=== PATIENT | male | born 1960 | race Caucasian/White ===

== ENCOUNTER 2016-07-24 19:22 | Inpatient (IN) | payer MEDICAID ==
[~2016-07-24] VITALS: Ht 177.8 cm; Wt 62.8 kg
[~2016-07-24 19:22] MED LIST: AMPI3VIA IV; CEPH-368 PO; IBUP200T48 PO; SULF1TAB24 PO; VANC1VIA3 IV
[2016-07-24] MEDS ORDERED: LORazepam 2 MG/ML, 1ML ONE ×2 (19:56→20:33)
[2016-07-24] MEDS ORDERED: ACETAMINOPHEN 650 MG SUPP ONE (19:56)
[2016-07-24 19:59] LABS: HEMOGLOBIN 12.7 g/dL (13.7-18.0)
[2016-07-24] MEDS ORDERED: ACETAMINOPHEN 500 MG TABLET PO ONE (20:00)
[2016-07-24] MEDS ORDERED: SODIUM CHLORIDE 0.9% 1,000ML IVBOLUS ONE ×2 (20:00)
[2016-07-24] MEDS ORDERED: LORazepam 2 MG/ML, 1ML IVPush ONE ×2 (20:00→21:00)
[2016-07-24] MEDS ORDERED: ACETAMINOPHEN 650 MG SUPP PR ONE (20:00)
[2016-07-24 20:13] LABS: ASPARTATE AMINO TRANSFERASE 25 U/L (15-37)
[2016-07-24] MEDS ORDERED: PIPERACILLIN/TAZO/PMX 3.375GM 50 ML IVPB ONE (20:30)
[2016-07-24] MEDS ORDERED: VANCOMYCIN PER PHARMACY MC ONE (20:30)
[2016-07-24 20:38] LABS: DAU SCREEN DISCLAIMER
[2016-07-24 20:43] LABS: BLOOD UREA NITROGEN 134 mg/dL (7-18)
[2016-07-24 20:46] LABS: IS PT STATUS REG ER OR PRE ER? YES
[2016-07-24] MEDS ORDERED: DEXTROSE 50%, 50ML SYRINGE ONE (20:56)
[2016-07-24] MEDS ORDERED: SODIUM BICARBONATE 1 MEQ/ML, 50ML VIAL ONE (20:57)
[2016-07-24] MEDS ORDERED: INSULIN SINGLE DOSE, ER SQ-INSULIN ONE (20:57)
[2016-07-24] MEDS ORDERED: SODIUM BICARB 8.4%, 50ML SYRINGE IVPush ONE (21:00)
[2016-07-24] MEDS ORDERED: INSULIN REGULAR 100 UNITS/ML, 3ML VIAL IVPush ONE (21:00)
[2016-07-24] MEDS ORDERED: SODIUM POLYSTYRENE SULFONATE ORAL SUSP PO ONE (21:00)
[2016-07-24] MEDS ORDERED: CALCIUM GLUCONATE 4.6 MEQ in SODIUM CHLORIDE 0.9% 50 ML IV ONE (21:00)
[2016-07-24] MEDS ORDERED: ALBUTEROL 0.5%, 20ML NPPB ONE (21:00)
[2016-07-24] MEDS ORDERED: VANCOMYCIN 1,200 MG in SODIUM CHLORIDE 0.9% 250 ML IV ONE (21:00)
[2016-07-24] MEDS ORDERED: DEXTROSE 50%, 50ML SYRINGE IVPush ONE (21:00)
[2016-07-24] MEDS ORDERED: SODIUM BICARB 8.4%,50ML SYR. 75 MEQ in SODIUM CHLORIDE 0.45% 1,000 ML IV SCH (21:30)
[2016-07-24] MEDS ORDERED: ALBUTEROL SULFATE 2.5 MG/3 ML ONE (21:42)
[2016-07-24] MEDS ORDERED: PHARMACY MAY ADJ FOR RENAL FX MC PRN (22:00)
[2016-07-24] MEDS ORDERED: LORazepam 2 MG/ML, 1ML IVPush PRN (22:00)
[2016-07-24] MEDS ORDERED: VANCOMYCIN PER PHARMACY MC PRN (22:00)
[2016-07-24] MEDS: HEPARIN 5,000 UNITS/ML, 1ML SQ SCH (22:00)
[2016-07-24] MEDS ORDERED: ONDANSETRON 2MG/ML, 2ML IVP PRN (22:00)
[2016-07-24] MEDS ORDERED: MORPHINE SULFATE 4 MG/ML, 1ML IVPush PRN (22:00)
[2016-07-24] MEDS ORDERED: PIPERACILLIN/TAZO/PMX 3.375GM 50 ML ONE (22:21)
[2016-07-24 22:26] LABS: BLOOD UREA NITROGEN 100 mg/dL (7-18)
[2016-07-24] MEDS ORDERED: FLUMAZENIL 0.1 MG/1 ML, 5ML ONE ×2 (23:07→23:28)
[2016-07-24] MEDS ORDERED: DEXTROSE 50%, 50ML VIAL IVPush ONE (23:30)
[2016-07-24] MEDS ORDERED: PHARMACOKINETIC MONITORING MC PRN (23:30)
[2016-07-24] MEDS ORDERED: PHARMACOKINETIC CONSULTATION MC ONE (23:30)
[2016-07-25] MEDS ORDERED: PROPOFOL 10 MG/ML, 100ML IV ONE
[2016-07-25 00:30] LABS: HEMOGLOBIN 11.1 g/dL (13.7-18.0)
[2016-07-25] MEDS ORDERED: FLUMAZENIL 0.1 MG/1 ML, 5ML IVPush ONE (00:30)
[2016-07-25 00:38] LABS: BLOOD UREA NITROGEN 83 mg/dL (7-18)
[2016-07-25 00:54] LABS: DIFF TOTAL CELLS COUNTED 100 CELL DIFF
[2016-07-25 00:56] LABS: VERIFY COUNTS? YES
[2016-07-25] MEDS ORDERED: LIDOCAINE-MPF 1%, 2ML ENDO PRN (01:00)
[2016-07-25] MEDS ORDERED: PROPOFOL 10 MG/ML, 20ML IV ONE (01:00)
[2016-07-25] MEDS: SODIUM CHLORIDE 0.9% 1,000 ML IV SCH ×4 (02:16→23:49)
[2016-07-25] MEDS: PROPOFOL 100 ML IV PRN ×2 (02:17→05:49)
[2016-07-25] MEDS: ALBUTEROL/IPRATROPIUM 2.5MG/0.5MG, 3 ML INLINE SCH ×3 (02:23→10:00)
[2016-07-25] MEDS: PIPERACILLIN/TAZO/PMX 2.25GM 50 ML IV SCH ×3 (02:51→18:46)
[2016-07-25 04:48] LABS: HEMOGLOBIN 11.1 g/dL (13.7-18.0)
[2016-07-25] MEDS ORDERED: NOREPINEPHRINE 1 MG/ML, 4ML ONE (05:30)
[2016-07-25] MEDS: SODIUM CHLORIDE 0.9% 500 ML IV SCH ×2 (05:30→06:30)
[2016-07-25] MEDS ORDERED: NOREPINEPHRINE 4 MG in SODIUM CHLORIDE 0.9% 246 ML IV PRN (05:30)
[2016-07-25 05:50] LABS: BLOOD UREA NITROGEN 71 mg/dL (7-18)
[2016-07-25] MEDS: HEPARIN 5,000 UNITS/ML, 1ML SQ SCH ×3 (06:00→23:49)
[2016-07-25] MEDS: PANTOPRAZOLE 40 MG IV IVP SCH (08:51)
[2016-07-26] MEDS: PIPERACILLIN/TAZO/PMX 2.25GM 50 ML IV SCH ×2 (02:37→11:26)
[2016-07-26 02:39] VITALS: BP 144/85
[2016-07-26 04:25] LABS: HEMOGLOBIN 9.9 g/dL (13.7-18.0)
[2016-07-26 04:34] LABS: BLOOD UREA NITROGEN 15 mg/dL (7-18); TOTAL IRON BINDING CAPACITY 165 mcg/dL (250-450)
[2016-07-26] MEDS: HEPARIN 5,000 UNITS/ML, 1ML SQ SCH ×3 (05:47→21:02)
[2016-07-26] MEDS: SODIUM CHLORIDE 0.9% 1,000 ML IV SCH ×2 (07:00→09:00)
[2016-07-26] MEDS ORDERED: MAGNESIUM SULFATE PMX 4GM/100M 100 ML IV ONE (07:00)
[2016-07-26 07:12] VITALS: BP 148/81
[2016-07-26] MEDS: PANTOPRAZOLE 40 MG IV IVP SCH (08:59)
[2016-07-26] MEDS ORDERED: POTASSIUM PHOS 4.4 MEQ/ML IV SCH (10:30)
[2016-07-26 10:33] LABS: BLOOD UREA NITROGEN 12 mg/dL (7-18)
[2016-07-26] MEDS ORDERED: SODIUM CHLORIDE 0.9% IV ONE (11:00)
[2016-07-26] MEDS ORDERED: POTASSIUM PHOSPHATE IV ONE (11:00)
[2016-07-26] MEDS: ERGOCALCIFEROL 50,000 UNIT CAPSULE PO SCH (11:26)
[2016-07-26] MEDS ORDERED: VANCOMYCIN 1,200 MG in SODIUM CHLORIDE 0.9% 250 ML IV SCH ×2 (12:00→20:00)
[2016-07-26 12:46] VITALS: BP 150/80
[2016-07-26] MEDS: CEFTRIAXONE PMX 2GM/50ML 50 ML IV SCH (13:51)
[2016-07-26] MEDS: FERROUS SULFATE 325 MG TABLET PO SCH (17:08)
[2016-07-26 19:15] VITALS: BP 138/89
[2016-07-26 22:43] LABS: BLOOD UREA NITROGEN 9 mg/dL (7-18)
[2016-07-27 00:39] VITALS: BP_SYST 159; BP_DIAS 88; BP_DIAS 91
[2016-07-27 04:17] LABS: ABG COLLECTION SITE RIGHT BRACHIAL
[2016-07-27 04:24] LABS: HEMOGLOBIN 10.6 g/dL (13.7-18.0)
[2016-07-27 04:35] LABS: BLOOD UREA NITROGEN 8 mg/dL (7-18)
[2016-07-27] MEDS: HEPARIN 5,000 UNITS/ML, 1ML SQ SCH ×3 (05:39→21:49)
[2016-07-27] MEDS ORDERED: MAGNESIUM SULFATE PMX 2GM/50ML 50 ML IV ONE ×2 (07:00→12:30)
[2016-07-27] MEDS ORDERED: SODIUM PHOSPHATE 20 MMOL in SODIUM CHLORIDE 0.9% 500 ML IV ONE (07:00)
[2016-07-27 07:11] VITALS: BP 143/88
[2016-07-27 10:13] LABS: BLOOD UREA NITROGEN 9 mg/dL (7-18)
[2016-07-27] MEDS: FERROUS SULFATE 325 MG TABLET PO SCH ×2 (10:24→17:29)
[2016-07-27] MEDS: CEFTRIAXONE PMX 2GM/50ML 50 ML IV SCH (13:05)
[2016-07-27] MEDS: NEUTRA PHOS K 250 MG TABLET PO SCH ×2 (13:07→21:47)
[2016-07-27 13:24] VITALS: BP 144/86
[2016-07-27 14:20] LABS: HIV 1&2 ANTIBODY SCREEN Nonreactive (Nonreactive); HIV-1 p24 ANTIGEN Nonreactive (Nonreactive)
[2016-07-27 15:22] LABS: HEPATITIS C VIRUS ANTIBODY Reactive (Nonreactive)
[2016-07-27 18:29] VITALS: BP 137/80
[2016-07-27] MEDS: LINEZOLID 600 MG TABLET PO SCH (21:47)
[2016-07-28 01:02] VITALS: BP 137/85
[2016-07-28 04:42] LABS: HEMOGLOBIN 11.8 g/dL (13.7-18.0)
[2016-07-28 04:48] LABS: BLOOD UREA NITROGEN 11 mg/dL (7-18)
[2016-07-28] MEDS: HEPARIN 5,000 UNITS/ML, 1ML SQ SCH ×3 (05:37→22:39)
[2016-07-28 08:25] VITALS: BP 126/83
[2016-07-28] MEDS: NEUTRA PHOS K 250 MG TABLET PO SCH ×2 (09:17→22:39)
[2016-07-28] MEDS: LINEZOLID 600 MG TABLET PO SCH ×2 (09:17→22:39)
[2016-07-28] MEDS: FERROUS SULFATE 325 MG TABLET PO SCH ×2 (09:17→15:43)
[2016-07-28] MEDS: CEFTRIAXONE PMX 2GM/50ML 50 ML IV SCH (12:29)
[2016-07-28 13:54] VITALS: BP 121/77
[2016-07-28 18:51] VITALS: BP 148/82
[2016-07-29 03:27] VITALS: BP 118/76
[2016-07-29 04:33] LABS: HEMOGLOBIN 13.1 g/dL (13.7-18.0)
[2016-07-29 04:40] LABS: BLOOD UREA NITROGEN 17 mg/dL (7-18)
[2016-07-29] MEDS: HEPARIN 5,000 UNITS/ML, 1ML SQ SCH ×3 (06:28→20:33)
[2016-07-29 07:47] VITALS: BP 113/73
[2016-07-29] MEDS: LINEZOLID 600 MG TABLET PO SCH ×2 (09:24→20:33)
[2016-07-29] MEDS: FERROUS SULFATE 325 MG TABLET PO SCH ×2 (09:24→17:32)
[2016-07-29] MEDS: CEFTRIAXONE PMX 2GM/50ML 50 ML IV SCH (12:14)
[2016-07-29 13:00] VITALS: BP 120/73
[2016-07-29 19:23] VITALS: BP 116/70
[2016-07-30 04:00] VITALS: BP 112/78
[2016-07-30] MEDS: HEPARIN 5,000 UNITS/ML, 1ML SQ SCH ×3 (05:00→21:52)
[2016-07-30 05:20] LABS: HEMOGLOBIN 13.4 g/dL (13.7-18.0)
[2016-07-30 06:01] LABS: ASPARTATE AMINO TRANSFERASE 105 U/L (15-37); BLOOD UREA NITROGEN 18 mg/dL (7-18)
[2016-07-30 08:34] VITALS: BP 101/64
[2016-07-30] MEDS: FERROUS SULFATE 325 MG TABLET PO SCH ×2 (08:57→18:01)
[2016-07-30] MEDS: LINEZOLID 600 MG TABLET PO SCH ×2 (08:57→21:52)
[2016-07-30] MEDS: CEFTRIAXONE PMX 2GM/50ML 50 ML IV SCH (12:47)
[2016-07-30 14:09] VITALS: BP 97/60
[2016-07-30 17:54] VITALS: BP 106/71
[2016-07-30 18:37] VITALS: BP 100/67
[2016-07-31 02:30] VITALS: BP 111/70
[2016-07-31] MEDS: HEPARIN 5,000 UNITS/ML, 1ML SQ SCH ×3 (04:51→21:21)
[2016-07-31 06:11] LABS: BLOOD UREA NITROGEN 22 mg/dL (7-18)
[2016-07-31 06:58] VITALS: BP 113/73
[2016-07-31] MEDS: LINEZOLID 600 MG TABLET PO SCH ×2 (10:42→21:21)
[2016-07-31] MEDS: FERROUS SULFATE 325 MG TABLET PO SCH ×2 (10:43→18:48)
[2016-07-31] MEDS: CEFTRIAXONE PMX 2GM/50ML 50 ML IV SCH (13:25)
[2016-07-31 13:26] VITALS: BP 116/78
[2016-07-31 20:00] VITALS: BP 115/73
[2016-08-01 02:00] VITALS: BP 113/70
[2016-08-01] MEDS: HEPARIN 5,000 UNITS/ML, 1ML SQ SCH ×3 (05:47→20:21)
[2016-08-01 06:22] LABS: HEMOGLOBIN 12.9 g/dL (13.7-18.0)
[2016-08-01 06:28] LABS: BLOOD UREA NITROGEN 23 mg/dL (7-18)
[2016-08-01 07:23] VITALS: BP 101/67
[2016-08-01] MEDS: LINEZOLID 600 MG TABLET PO SCH ×2 (10:07→20:21)
[2016-08-01] MEDS: FERROUS SULFATE 325 MG TABLET PO SCH ×2 (10:07→18:31)
[2016-08-01] MEDS: CEFTRIAXONE PMX 2GM/50ML 50 ML IV SCH (12:16)
[2016-08-01] MEDS: TAMSULOSIN 0.4 MG CAP.ER.24H PO SCH (12:16)
[2016-08-01 13:01] VITALS: BP 103/66
[2016-08-01 20:00] VITALS: BP 100/62
[2016-08-02 02:00] VITALS: BP 97/60
[2016-08-02 05:10] LABS: HEMOGLOBIN 12.4 g/dL (13.7-18.0)
[2016-08-02 05:25] LABS: BLOOD UREA NITROGEN 23 mg/dL (7-18)
[2016-08-02] MEDS: HEPARIN 5,000 UNITS/ML, 1ML SQ SCH (05:27)
[2016-08-02 07:34] VITALS: BP 100/66
[2016-08-02] MEDS: LINEZOLID 600 MG TABLET PO SCH (09:40)
[2016-08-02] MEDS: TAMSULOSIN 0.4 MG CAP.ER.24H PO SCH (09:40)
[2016-08-02] MEDS: FERROUS SULFATE 325 MG TABLET PO SCH (09:40)
[2016-08-02] MEDS: ERGOCALCIFEROL 50,000 UNIT CAPSULE PO SCH (09:40)
[2016-08-02] MEDS ORDERED: TAMS-11 PO (09:43)
[2016-08-02] MEDS ORDERED: SULF1TAB24 PO (09:52)
[2016-08-02] MEDS ORDERED: AMOX1TAB64 PO (09:52)
[2016-08-02] MEDS: CEFTRIAXONE PMX 2GM/50ML 50 ML IV SCH (12:22)
[2016-08-02 13:08] VITALS: BP 103/64
== END 2016-08-02 16:45 | DRG 871 ==
LOC: ED 20:54 → EDIP 20:55 → ED 21:11 → CCU 22:35 → ICU 07-26 03:46 → 4WST 07-30 17:51
PROVIDERS: ADMIT Internal Medicine; ATTEND Family Medicine
PROC: 0T9B70Z Drainage of Bladder with Drainage Device, Via Natural or Artificial Opening (ICD-10-PCS; 2016-07-24)
PROC: 5A1935Z Respiratory Ventilation, Less than 24 Consecutive Hours (ICD-10-PCS; principal; 2016-07-25)
PROC: 0BH17EZ Insertion of Endotracheal Airway into Trachea, Via Natural or Artificial Opening (ICD-10-PCS; 2016-07-25)
PROC: 05HM33Z Insertion of Infusion Device into Right Internal Jugular Vein, Percutaneous Approach (ICD-10-PCS; 2016-07-25)
DX: A41.51 Sepsis due to Escherichia coli [E. coli] (principal); N17.0 Acute kidney failure with tubular necrosis; J96.00 Acute respiratory failure, unspecified whether with hypoxia or hypercapnia; G93.41 Metabolic encephalopathy; J15.4 Pneumonia due to other streptococci; J15.29 Pneumonia due to other staphylococcus; N39.0 Urinary tract infection, site not specified; E87.1 Hypo-osmolality and hyponatremia; Z99.11 Dependence on respirator [ventilator] status; M86.8X4 Other osteomyelitis, hand; Z59.0 Homelessness; Z80.9 Family history of malignant neoplasm, unspecified; E87.5 Hyperkalemia; L03.011 Cellulitis of right finger; F15.10 Other stimulant abuse, uncomplicated; B19.20 Unspecified viral hepatitis C without hepatic coma; E05.90 Thyrotoxicosis, unspecified without thyrotoxic crisis or storm; E83.39 Other disorders of phosphorus metabolism; D64.9 Anemia, unspecified; E83.42 Hypomagnesemia; F17.200 Nicotine dependence, unspecified, uncomplicated; B96.89 Other specified bacterial agents as the cause of diseases classified elsewhere; B96.3 Hemophilus influenzae [H. influenzae] as the cause of diseases classified elsewhere
CPT/HCPCS: 31624; 36415; 36600; 70450; 71010; 80048; 80053; 80074; 80307; 81001; 82306; 82550; 82728; 82803; 82805; 82962; 83036; 83540; 83550; 83605; 83735; 84100; 84145; 84439; 84443; 84478; 84484; 85025; 85610; 86703; 87040; 87070; 87077; 87081; 87086; 87107; 87184; 87186; 87205; 87521; 87899; 93005; 94002; 94003; 94150; 94640; 96361; 96374; 96375; 96376; J0610; J0696; J1644; J2543; J2704; J3370; J7620; C9113; G0435; J2060; J3475; J7030; J7040; J7050

== ENCOUNTER 2016-08-24 15:33 | Emergency (ER) | payer MEDICAID ==
[~2016-08-24] VITALS: Ht 177.8 cm; Wt 70.2 kg
[~2016-08-24 15:33] MED LIST changes: +AMOX1TAB64 PO; +TAMS-11 PO
[2016-08-24 18:09] VITALS: BP 122/68
== END 2016-08-24 18:13 | disposition home or self-care (01) ==
LOC: ED 17:01
DX: T83.038A Leakage of other urinary catheter, initial encounter (principal); N40.1 Benign prostatic hyperplasia with lower urinary tract symptoms; R33.8 Other retention of urine
CPT/HCPCS: 51702

== ENCOUNTER 2016-09-13 15:19 | Emergency (ER) | payer MEDICAID ==
[~2016-09-13] VITALS: Ht 180.3 cm; Wt 77.0 kg
[2016-09-13] MEDS ORDERED: LEVOFLOXACIN 750 MG TABLET PO ONE (17:00)
[2016-09-13] MEDS ORDERED: CEFTRIAXONE 250 MG IM ONE (17:00)
[2016-09-13] MEDS ORDERED: OXYcodone/APAP 5/325MG TABLET PO ONE (17:00)
[2016-09-13 17:01] LABS: BLOOD UREA NITROGEN 24 mg/dL (7-18)
[2016-09-13] MEDS ORDERED: OXYcodone/APAP 5/325MG TABLET ONE (17:26)
[2016-09-13] MEDS ORDERED: LEVOFLOXACIN 750 MG TABLET ONE (17:26)
[2016-09-13] MEDS ORDERED: CEFTRIAXONE 250 MG ONE (17:27)
[2016-09-13] MEDS ORDERED: LIDOCAINE 1%, 20ML ONE (17:27)
[2016-09-13 18:34] VITALS: BP 138/78
== END 2016-09-13 19:03 | disposition home or self-care (01) ==
LOC: ED 15:45
DX: N45.1 Epididymitis (principal); T83.098A Other mechanical complication of other urinary catheter, initial encounter; N30.00 Acute cystitis without hematuria; F15.10 Other stimulant abuse, uncomplicated
CPT/HCPCS: 36415; 51701; 76870; 80048; 81001; 82040; 85025; 87077; 87086; 87186; 96372; 99285; J0696; P9612

== ENCOUNTER 2016-09-17 21:31 | Inpatient (IN) | payer MEDICAID ==
[~2016-09-17] VITALS: Ht 180.3 cm; Wt 67.5 kg
[2016-09-17] MEDS ORDERED: SODIUM CHLORIDE FLUSH 10ML SYR IVF ONE (23:00)
[2016-09-17] MEDS ORDERED: SODIUM CHLORIDE 0.9% 1,000ML IVBOLUS ONE (23:00)
[2016-09-17 23:13] LABS: BLOOD UREA NITROGEN 75 mg/dL (7-18)
[2016-09-17] MEDS ORDERED: SULFAMETH./TRIMETHOPRIM DS 800MG/160MG TABLET PO ONE (23:30)
[2016-09-18] MEDS ORDERED: HYDR-3241 PO (00:07)
[2016-09-18] MEDS ORDERED: LEVO500T33 PO (00:07)
[2016-09-18] MEDS ORDERED: SULFAMETH./TRIMETHOPRIM DS 800MG/160MG TABLET ONE (00:32)
[2016-09-18] MEDS: SODIUM CHLORIDE 0.9% 1,000 ML IV SCH ×2 (02:16→13:41)
[2016-09-18] MEDS ORDERED: ACETAMINOPHEN 325 MG TABLET PO PRN (02:30)
[2016-09-18] MEDS ORDERED: LABETALOL 5MG/ML, 20ML IVPush PRN (02:30)
[2016-09-18] MEDS ORDERED: POLYETHYLENE GLYCOL 17 GM PACKET PO PRN (02:30)
[2016-09-18] MEDS ORDERED: BISACODYL 10 MG SUPP PR PRN (02:30)
[2016-09-18] MEDS ORDERED: TRAZODONE 50MG TABLET PO PRN (02:30)
[2016-09-18] MEDS ORDERED: DOCUSATE 100 MG CAPSULE PO PRN (02:30)
[2016-09-18] MEDS: HEPARIN 5,000 UNITS/ML, 1ML SQ SCH ×3 (03:22→18:43)
[2016-09-18] MEDS: NICOTINE 14MG/24 HR PATCH.TD24 TD SCH (03:22)
[2016-09-18 06:32] LABS: BLOOD UREA NITROGEN 50 mg/dL (7-18)
[2016-09-18 07:36] VITALS: BP 122/78
[2016-09-18] MEDS: TAMSULOSIN 0.4 MG CAP.ER.24H PO SCH (09:28)
[2016-09-18] MEDS: SULFAMETH./TRIMETHOPRIM DS 800MG/160MG TABLET PO SCH ×2 (09:29→20:27)
[2016-09-18] MEDS ORDERED: PHARMACY MAY ADJ FOR RENAL FX MC PRN (10:30)
[2016-09-18 14:10] VITALS: BP 119/76
[2016-09-18 19:39] VITALS: BP 123/79
[2016-09-19 01:21] VITALS: BP 120/83
[2016-09-19] MEDS ORDERED: PROCHLORPERAZINE 5 MG/ML, 2ML IVPush PRN (01:30)
[2016-09-19] MEDS: SODIUM CHLORIDE 0.9% 1,000 ML IV SCH ×2 (01:57→09:28)
[2016-09-19] MEDS: HEPARIN 5,000 UNITS/ML, 1ML SQ SCH ×3 (01:57→18:35)
[2016-09-19] MEDS: NICOTINE 14MG/24 HR PATCH.TD24 TD SCH (01:57)
[2016-09-19 07:13] LABS: BLOOD UREA NITROGEN 22 mg/dL (7-18)
[2016-09-19 07:26] VITALS: BP 114/77
[2016-09-19] MEDS: TAMSULOSIN 0.4 MG CAP.ER.24H PO SCH (09:28)
[2016-09-19] MEDS: SULFAMETH./TRIMETHOPRIM DS 800MG/160MG TABLET PO SCH ×2 (10:24→21:45)
[2016-09-19 12:47] VITALS: BP 112/72
[2016-09-19 19:39] VITALS: BP 118/69
[2016-09-20 02:02] VITALS: BP 114/65
[2016-09-20] MEDS: NICOTINE 14MG/24 HR PATCH.TD24 TD SCH (03:28)
[2016-09-20] MEDS: HEPARIN 5,000 UNITS/ML, 1ML SQ SCH ×2 (03:28→12:13)
[2016-09-20 05:49] LABS: BLOOD UREA NITROGEN 20 mg/dL (7-18)
[2016-09-20] MEDS: SULFAMETH./TRIMETHOPRIM DS 800MG/160MG TABLET PO SCH (08:23)
[2016-09-20] MEDS: TAMSULOSIN 0.4 MG CAP.ER.24H PO SCH (08:23)
[2016-09-20 08:30] VITALS: BP 117/73
[2016-09-20] MEDS ORDERED: SULF1TAB3 PO (13:32)
[2016-09-20] MEDS ORDERED: ACET325T14 PO (13:32)
[2016-09-20 14:30] VITALS: BP 107/72
[2016-09-21 00:06] LABS: THYROGLOBULIN AB <1.0 IU/mL (0.0-0.9); THYROID PEROXIDASE (TPO) AB 14 IU/mL (0-34)
== END 2016-09-20 18:10 | disposition home or self-care (01) | DRG 699 ==
LOC: ED 23:59 → EDIP 09-18 01:39 → 3NE 09-18 02:30
PROVIDERS: ADMIT Internal Medicine; ATTEND Internal Medicine
PROC: 0T2BX0Z Change Drainage Device in Bladder, External Approach (ICD-10-PCS; principal; 2016-09-18)
DX: T83.028A Displacement of other urinary catheter, initial encounter (principal); N17.9 Acute kidney failure, unspecified; N39.0 Urinary tract infection, site not specified; E44.0 Moderate protein-calorie malnutrition; E87.1 Hypo-osmolality and hyponatremia; N13.30 Unspecified hydronephrosis; T83.511A Infection and inflammatory reaction due to indwelling urethral catheter, initial encounter; F17.200 Nicotine dependence, unspecified, uncomplicated; B18.2 Chronic viral hepatitis C; D72.828 Other elevated white blood cell count; D64.9 Anemia, unspecified; F15.10 Other stimulant abuse, uncomplicated; F17.210 Nicotine dependence, cigarettes, uncomplicated; F19.10 Other psychoactive substance abuse, uncomplicated; K00.7 Teething syndrome; E07.81 Sick-euthyroid syndrome; E05.90 Thyrotoxicosis, unspecified without thyrotoxic crisis or storm; Z68.20 Body mass index [BMI] 20.0-20.9, adult; B95.61 Methicillin susceptible Staphylococcus aureus infection as the cause of diseases classified elsewhere
CPT/HCPCS: 36415; 76770; 80048; 81001; 82040; 83735; 84439; 84443; 84481; 85025; 86376; 86800; 87077; 87086; 87186; 87324; 99285; J1644; J0780; J7030

== ENCOUNTER 2016-10-03 22:41 | Emergency (ER) | payer MEDICAID ==
[~2016-10-03] VITALS: Ht 180.3 cm; Wt 75.0 kg
[~2016-10-03 22:41] MED LIST changes: +ACET325T14 PO; +HYDR-3241 PO; +LEVO500T33 PO; +SULF1TAB3 PO
[2016-10-03 23:48] LABS: ASPARTATE AMINO TRANSFERASE 37 U/L (15-37); BLOOD UREA NITROGEN 19 mg/dL (7-18)
[2016-10-03 23:57] LABS: DAU SCREEN DISCLAIMER
[2016-10-04 00:49] VITALS: BP 146/96
== END 2016-10-04 00:52 | disposition home or self-care (01) ==
LOC: ED 23:59
DX: N30.90 Cystitis, unspecified without hematuria (principal); N40.1 Benign prostatic hyperplasia with lower urinary tract symptoms; F15.129 Other stimulant abuse with intoxication, unspecified
CPT/HCPCS: 36415; 80053; 80307; 81001; 83690; 85025; 87086; 87106; 99284

== ENCOUNTER 2016-11-23 15:13 | Emergency (ER) | payer MEDICAID ==
[~2016-11-23] VITALS: Ht 180.3 cm; Wt 74.6 kg
[2016-11-23 16:25] LABS: PATH.CAST-FLAG NOT PRESENT; SPERM-FLAG NOT PRESENT; SRC-FLAG NOT PRESENT; XTAL-FLAG NOT PRESENT; YLC-FLAG NOT PRESENT
[2016-11-23 16:38] LABS: HEMATOCRIT 30.9 % (39.2-51.8); HEMOGLOBIN 10.2 g/dL (13.7-18.0); WHITE BLOOD COUNT 10.5 x10^3/uL (3.4-10)
[2016-11-23 16:49] LABS: ASPARTATE AMINO TRANSFERASE 25 U/L (15-37); BLOOD UREA NITROGEN 38 mg/dL (7-18)
[2016-11-23] MEDS ORDERED: CEFTRIAXONE PMX 1GM/50ML 50 ML IVPB ONE (17:00)
[2016-11-23] MEDS ORDERED: CEFTRIAXONE PMX 1GM/50ML 50 ML ONE (17:20)
[2016-11-23 19:06] VITALS: BP 129/74
== END 2016-11-23 19:08 | disposition home or self-care (01) ==
LOC: ED 16:11
DX: N30.01 Acute cystitis with hematuria (principal); N28.9 Disorder of kidney and ureter, unspecified; Z59.0 Homelessness; Z72.9 Problem related to lifestyle, unspecified; F15.10 Other stimulant abuse, uncomplicated; F12.10 Cannabis abuse, uncomplicated
CPT/HCPCS: 36415; 51702; 80053; 81001; 85025; 87086; 96365; 99284; J0696

== ENCOUNTER 2017-01-31 13:02 | Emergency (ER) | payer MEDICAID ==
[~2017-01-31] VITALS: Ht 180.3 cm; Wt 74.0 kg
[~2017-01-31 13:02] MED LIST changes: -LEVO500T33 PO; +LEVO500T47 PO; +SULF-169 PO; -SULF1TAB3 PO
[2017-01-31 13:31] LABS: HEMATOCRIT 41.7 % (39.2-51.8); HEMOGLOBIN 14.6 g/dL (13.7-18.0)
[2017-01-31 13:41] LABS: BLOOD UREA NITROGEN 27 mg/dL (7-18)
[2017-01-31 15:46] VITALS: BP 128/84
== END 2017-01-31 15:59 | disposition home or self-care (01) ==
LOC: ED 13:43
DX: T83.098A Other mechanical complication of other urinary catheter, initial encounter (principal); N30.00 Acute cystitis without hematuria; X58.XXXA Exposure to other specified factors, initial encounter; Y93.89 Activity, other specified; Y92.89 Other specified places as the place of occurrence of the external cause; Y99.8 Other external cause status
CPT/HCPCS: 36415; 51702; 80048; 81001; 82040; 85025; 87077; 87086; 87186

== ENCOUNTER → 2017-03-25 | Outpatient (CLI) | payer MEDICAID ==
[~2017-03-25] MED LIST changes: +NONE PER PT
[2017-03-25 10:47] LABS: HEMATOCRIT 41.2 % (39.2-51.8); HEMOGLOBIN 14.1 g/dL (13.7-18.0); WHITE BLOOD COUNT 10.3 x10^3/uL (3.4-10)
[2017-03-25 11:00] LABS: PATH.CAST-FLAG NOT PRESENT; SPERM-FLAG NOT PRESENT; SRC-FLAG NOT PRESENT; XTAL-FLAG NOT PRESENT; YLC-FLAG NOT PRESENT
[2017-03-25 11:00] LABS: ASPARTATE AMINO TRANSFERASE 54 U/L (15-37); BLOOD UREA NITROGEN 20 mg/dL (7-18)
== END | disposition home or self-care (01) ==
LOC: STAR 09:39
PROVIDERS: ATTEND Urology
DX: Z01.818 Encounter for other preprocedural examination (principal); R33.9 Retention of urine, unspecified; R79.1 Abnormal coagulation profile
CPT/HCPCS: 36415; 80053; 81001; 85025; 85610; 85730; 87077; 87086; 87186

== ENCOUNTER → 2017-03-31 | Outpatient (CLI) | payer MEDICAID ==
[2017-03-25 10:05] VITALS: BP 125/87
[~2017-03-31] VITALS: Ht 180.3 cm; Wt 74.1 kg
[~2017-03-31] MED LIST changes: -IBUP200T48 PO; +IBUP200T49 PO; +LACTATED RINGERS 1,000 ML IV SCH
[2017-03-31 11:19] LABS: DAU SCREEN DISCLAIMER
[2017-03-31 11:26] VITALS: BP 125/81
== END ==
LOC: OUT 10:55 → EDSTATUS 13:30
PROVIDERS: ATTEND Urology
DX: Z01.818 Encounter for other preprocedural examination (principal); R33.9 Retention of urine, unspecified
CPT/HCPCS: 80307; J7120; G0479

== ENCOUNTER 2017-11-19 18:15 | Emergency (ER) | payer MEDICAID ==
[~2017-11-19] VITALS: Ht 175.3 cm; Wt 75.0 kg
[~2017-11-19 18:15] MED LIST changes: -LACTATED RINGERS 1,000 ML IV SCH
[2017-11-19 19:55] LABS: MICROSCOPIC INDICATED
[2017-11-19 20:18] LABS: BASOPHILS # (AUTO) 0.27 x10^3/uL (0-0.1); BASOPHILS % (AUTO) 2 % (0-1); EOSINOPHILS # (AUTO) 0.26 x10^3/uL (0-0.4); EOSINOPHILS % (AUTO) 2 % (1-7); LYMPHOCYTES # (AUTO) 1.99 x10^3/uL (1-3.4); LYMPHOCYTES % (AUTO) 18 % (22-44); MD NO; MEAN CORPUSCULAR HGB CONC 34.5 g/dL (33.2-36.2); MEAN CORPUSCULAR VOLUME 89.7 fL (81-97); MEAN PLATELET VOLUME 7.7 fL (7.4-10.4); MONOCYTES % (AUTO) 4 % (2-9); NEUTROPHILS # (AUTO) 8.17 x10^3/uL (1.8-6.8); NEUTROPHILS % (AUTO) 73 % (42-75); PLATELET COUNT 229 x10^3/uL (130-400); RED BLOOD COUNT 4.85 x10^6/uL (4.38-5.82); RED CELL DISTRIBUTION WIDTH 13.1 % (9.4-14.8)
[2017-11-19 20:25] LABS: MICROSCOPIC INDICATED
[2017-11-19 20:31] LABS: ALANINE AMINOTRANSFERASE 28 U/L (12-78); ALBUMIN 3.6 g/dL (3.4-5.0); ANION GAP 4 mmol/L (5-15); CALCIUM 8.6 mg/dL (8.5-10.1); CHLORIDE 109 mmol/L (98-107); CREATININE 0.98 mg/dL (0.7-1.3)
[2017-11-19 20:33] LABS: ALKALINE PHOSPHATASE 72 U/L (45-117); BILIRUBIN,TOTAL 0.5 mg/dL (0.2-1.0); TOTAL PROTEIN 7.6 g/dL (6.4-8.2)
[2017-11-19 22:08] VITALS: BP 99/62
== END 2017-11-19 22:11 | disposition home or self-care (01) ==
LOC: ED 20:19
DX: R10.30 Lower abdominal pain, unspecified (principal); N40.0 Benign prostatic hyperplasia without lower urinary tract symptoms
CPT/HCPCS: 36415; 51702; 80053; 81001; 85025; 99284

== ENCOUNTER 2017-11-21 07:48 | Emergency (ER) | payer MEDICAID ==
[~2017-11-21] VITALS: Ht 180.3 cm; Wt 79.0 kg
[2017-11-21 09:09] VITALS: BP 113/77
== END 2017-11-21 11:23 | disposition home or self-care (01) ==
LOC: ED 09:52
DX: T83.098A Other mechanical complication of other urinary catheter, initial encounter (principal); X58.XXXA Exposure to other specified factors, initial encounter; Y93.89 Activity, other specified; Y92.89 Other specified places as the place of occurrence of the external cause; Y99.8 Other external cause status
CPT/HCPCS: 51702; 99284

== ENCOUNTER 2018-02-19 15:07 | Emergency (ER) | payer MEDICAID ==
[~2018-02-19] VITALS: Ht 180.3 cm; Wt 71.5 kg
[2018-02-19 16:16] LABS: CULTURE INDICATED? YES; MICROSCOPIC INDICATED
[2018-02-19] MEDS ORDERED: CEFTRIAXONE 1,000 MG ONE (17:18)
[2018-02-19] MEDS ORDERED: CEFTRIAXONE 1,000 MG IM ONE (17:30)
[2018-02-19 17:54] VITALS: BP 116/75
== END 2018-02-19 17:56 | disposition home or self-care (01) ==
LOC: ED 17:08
DX: N30.80 Other cystitis without hematuria (principal); N28.9 Disorder of kidney and ureter, unspecified; F15.10 Other stimulant abuse, uncomplicated; F12.10 Cannabis abuse, uncomplicated; Z72.9 Problem related to lifestyle, unspecified; Z87.440 Personal history of urinary (tract) infections
CPT/HCPCS: 81001; 87077; 87086; 87186; 93005; 96372; 99285; J0696; 51702

== ENCOUNTER 2018-02-25 16:09 | Emergency (ER) | payer MEDICAID ==
[~2018-02-25] VITALS: Ht 180.3 cm; Wt 74.7 kg
[2018-02-25 16:17] VITALS: BP 162/97
== END 2018-02-25 17:03 | disposition home or self-care (01) ==
LOC: ED 16:50
DX: T83.098A Other mechanical complication of other urinary catheter, initial encounter (principal); N28.9 Disorder of kidney and ureter, unspecified; F17.210 Nicotine dependence, cigarettes, uncomplicated; Z87.440 Personal history of urinary (tract) infections
CPT/HCPCS: 99281